=== PATIENT | male | born 1980 | race Caucasian/White ===

== ENCOUNTER 2017-05-16 15:45 | Emergency (ER) | payer BC ==
[2017-05-16 15:54] VITALS: BP 115/79
[2017-05-16] MEDS ORDERED: Ondansetron INJ* 2 MG/ML VIAL IV ONE (16:35)
[2017-05-16] MEDS ORDERED: Morphine INJ* 4 MG/ML 1 ML SYRINGE IV ONE ×2 (16:35→17:30)
[2017-05-16] MEDS ORDERED: Iohexol 300* (CONTRAST) 10 ML SDV IV ONE (17:46)
[2017-05-16 17:49] LABS: Hematocrit 49 % (42-52); Mean Corpuscular HGB Conc 33 g/dl (31-36); Mean Corpuscular Hemoglobin 29 pg (27-31); Mean Corpuscular Volume 88 fL (80-94); Mean Platelet Volume 11 um3 (7.4-10.4); Red Blood Count 5.54 10^6/ul (4.0-5.4); Red Cell Distribution Width 13 % (10.5-15); White Blood Count 5.4 10^3/ul (3.5-10.8)
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
[2017-05-16 18:05] LABS: ALT 24 U/L (7-52); AST 29 U/L (13-39); Albumin 4.5 g/dL (3.2-5.2); Alkaline Phosphatase 46 U/L (34-104); Anion Gap 8 mmol/L (2-11); BUN/Creatinine Ratio 14.4 (8-20); Blood Urea Nitrogen 14 mg/dL (6-24); C Reactive Protein < 1.00 mg/L (< 5.00); CO2 Carbon Dioxide 24 mmol/L (22-32); Calcium 9.2 mg/dL (8.6-10.3); Chloride 107 mmol/L (101-111); EGFR Non-African American 87.1 (>60); Globulin 2.6 g/dL (2-4); Glucose 128 mg/dL (70-100); Potassium 3.6 mmol/L (3.5-5.0); Sodium 139 mmol/L (133-145); Total Protein 7.1 g/dL (6.4-8.9)
[2017-05-16] MEDS ORDERED: Ketorolac INJ* 30 MG/ML 1 ML VIAL IV PUSH ONE (18:13)
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
[2017-05-16 18:43] LABS: Alcohol 217 mg/dL (<10)
[2017-05-16] MEDS ORDERED: oxyCODONE/Acetamin 5/325 MG* TAB PO ONE (19:31)
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
== END 2017-05-16 18:50 | disposition home or self-care (01) ==
LOC: ED 15:45
DX: S42.001A Fracture of unspecified part of right clavicle, initial encounter for closed fracture (principal); M25.511 Pain in right shoulder; V86.59XA Driver of other special all-terrain or other off-road motor vehicle injured in nontraffic accident, initial encounter; Y93.I9 Activity, other involving external motion; Y92.9 Unspecified place or not applicable
CPT/HCPCS: 36415; 71010; 71260; 80053; 80320; 85025; 86140; 96374; 96375; 99283; A9270-GY; G0480; J1885; J2270; J2405; Q9967

== ENCOUNTER 2019-09-23 10:14 | Emergency (ER) | payer BC ==
[2019-09-23 10:22] VITALS: BP 131/78
--- NOTE | 2019-09-23 10:23 | UC ---
UC General HPI - HPI Summary HPI Summary: Patient is a 39-year-old male presenting with left scapular pain 3 days. States it feels like a stabbing pain that is worse with deep breaths and certain movements. Denies radiating pain. Denies any trauma or injury. Denies bruising, swelling, decreased range of motion, or decreased strength. Denies numbness and tingling. Denies chest pain. Denies shortness of breath and wheezing. States this happened once before but he developed a cold a few days later. Denies any URI symptoms today. Patient works in an [employer] shop and states that he is constantly lifting things and could have strained something. - History of Current Complaint Stated Complaint: CHEST WALL PAIN Time Seen by Provider: 09/23/19 10:18 Hx Obtained From: Patient Onset/Duration: Sudden Onset Timing: Constant Pain Intensity: 8 - Allergy/Home Medications Allergies/Adverse Reactions: Allergies Allergy/AdvReac Type Severity Reaction Status Date / Time No Known Allergies Allergy Verified 09/23/19 10:23 Home Medications: Home Medications NK [No Home Medications Reported] 09/23/19 [History Confirmed 09/23/19] PMH/Surg Hx/FS Hx/Imm Hx Previously Healthy: Yes - Surgical History Surgical History: None Surgery Procedure, Year, and Place: denies - Family History Known Family History: Positive: Unknown, Non-Contributory - Social History Alcohol Use: Occasionally Alcohol Amount: ETOH 05/16/17 Substance Use Type: None Smoking Status (MU): Never Smoked Tobacco Review of Systems All Other Systems Reviewed And Are Negative: Yes Constitutional: Positive: Negative. Negative: Fever, Chills Respiratory: Positive: Negative. Negative: Shortness Of Breath, Cough Cardiovascular: Positive: Negative. Negative: Palpitations, Chest Pain Gastrointestinal: Positive: Negative. Negative: Abdominal Pain, Vomiting, Nausea Motor: Positive: Negative Musculoskeletal: Positive: Myalgia. Negative: Decreased ROM, Edema Neurological: Negative: Headache, Weakness, Paresthesia, Numbness Physical Exam Triage Information Reviewed: Yes Appearance: Well-Appearing, No Pain Distress, Well-Nourished Vital Signs: Initial Vital Signs Temp 98.8 F 09/23/19 10:19 Pulse 73 09/23/19 10:19 Resp 16 09/23/19 10:19 BP 131/78 09/23/19 10:19 Pulse Ox 100 09/23/19 10:19 Vital Signs Reviewed: Yes Eyes: Positive: Conjunctiva Clear ENT: Positive: Hearing grossly normal Neck: Positive: Supple Respiratory Exam: Normal Respiratory: Positive: Lungs clear, Normal breath sounds, No respiratory distress. Negative: Crackles, Rhonchi, Stridor, Wheezing Cardiovascular Exam: Normal Cardiovascular: Positive: RRR, Pulses Normal. Negative: Tachycardia, Bradycardia Musculoskeletal Exam: Normal Musculoskeletal: Positive: Strength Intact, ROM Intact, No Edema, Other: - point tenderness reproducible at tip of left scapula Neurological: Positive: Alert Psychological: Positive: Age Appropriate Behavior Course/Dx - Course Course Of Treatment: Patient VS and PE findings normal and in no pain or respiratory distress. Discussed likely muscle strain with patient and instructed to continue with symptomatic treatment including lido patches. Instructed to follow up with physician referral if pain persists. Instructed to go to ED if symptoms worsen. Patient voiced understanding and agreed with the treatment plan. - Diagnoses Provider Diagnosis: Muscle strain of left scapular region Discharge ED - Sign-Out/Discharge Documenting (check all that apply): Patient Departure All imaging exams completed and their final reports reviewed: No Studies - Discharge Plan Condition: Stable Disposition: HOME Patient Education Materials: Muscle Strain (ED) Referrals: [facility] REFERRAL [Outside] - If Needed Additional Instructions: As discussed, your pain is likely caused by a muscle strain. It is recommended that you try lidocaine patches for pain relief. You may continue with ibuprofen as directed. Refrain from heavy lifting until pain has fully resolved. Follow up with the Physician Referral listed below if pain persists. Go to the emergency room if you experience severe shoulder pain, fever, nausea, vomiting, chest pain, or difficulty breathing. - Billing Disposition and Condition Condition: STABLE Disposition: Home - Attestation Statements Provider Attestation: I was available for consult. This patient was seen by the RACHEL. The patient was not presented to, seen by, or examined by me. -Nadine
== END 2019-09-23 10:35 | disposition home or self-care (01) ==
LOC: UCEAST 10:14
DX: S46.812A Strain of other muscles, fascia and tendons at shoulder and upper arm level, left arm, initial encounter (principal); X58.XXXA Exposure to other specified factors, initial encounter; Y92.9 Unspecified place or not applicable
CPT/HCPCS: 99211; G0463